=== PATIENT | male | born 1970 | race Caucasian/White ===

== ENCOUNTER 2018-03-08 11:10 | Emergency (ER) | payer MEDICAID ==
[~2018-03-08] VITALS: Ht 177.8 cm; Wt 73.0 kg
[2018-03-08] MEDS ORDERED: KETOROLAC 60MG/2ML VIAL IM STA (12:54)
[2018-03-08 13:38] LABS: CLARITY URINE CLEAR (CLEAR); COLOR URINE YELLOW (YELLOW); KETONES URINE NEGATIVE (NEGATIVE); LEUKOCYTE ESTERASE URINE NEGATIVE (NEGATIVE); NITRITE URINE NEGATIVE (NEGATIVE); OCCULT BLOOD URINE NEGATIVE (NEGATIVE); PH URINE 7.5 (4.5-8.0); PROTEIN URINE NEGATIVE (NEGATIVE); SPECIFIC GRAVITY URINE 1.006 (1.005-1.030); UROBILINOGEN URINE 0.2 E.U./dL (0.2-1.0)
[2018-03-08 17:20] VITALS: BP 138/91
== END 2018-03-08 17:21 | disposition home or self-care (01) ==
LOC: ER 11:10
DX: M54.9 Dorsalgia, unspecified (principal); R03.0 Elevated blood-pressure reading, without diagnosis of hypertension
CPT/HCPCS: 72131; 81003; 96372; 99285; J1885; Z7610